=== PATIENT | female | born 1995 | race Caucasian/White ===

== ENCOUNTER 2017-04-19 15:50 | Emergency (ER) | payer SELFPAY ==
[~2017-04-19 15:50] MED LIST: Ibuprofen 800 MG TAB ONE; Sodium Chloride Irrig Solution 250 ML BOT ONE
--- NOTE | 2017-04-19 17:20 | RAD ---
PORTABLE FRONTAL CHEST: Date: 04-19-17 Comparison: None. History: Chest pain. FINDINGS: The lungs are clear. Heart and mediastinal contours are unremarkable. IMPRESSION: No acute findings. POS: [facility]
== END 2017-04-19 17:15 | disposition home or self-care (01) ==
LOC: MADERS 15:50
DX: S50.312A Abrasion of left elbow, initial encounter (principal); S00.81XA Abrasion of other part of head, initial encounter; R51 Headache; V89.2XXA Person injured in unspecified motor-vehicle accident, traffic, initial encounter
CPT/HCPCS: 71010